=== PATIENT | male | born 1975 | race American Indian/Alaskan Native ===

== ENCOUNTER 2020-08-03 02:39 | Emergency (ER) | payer SELFPAY ==
[2020-08-03 02:51] VITALS: BP 121/73
[2020-08-03] MEDS ORDERED: oxyCODONE /ACETAMINOPHEN 5-325MG TAB PO ONE (04:03)
[2020-08-03] MEDS ORDERED: ONDANSETRON 4 MG ODT TAB PO ONE (04:03)
[2020-08-03] MEDS ORDERED: CLINDAMYCIN 150 MG CAP PO ONE (04:03)
[2020-08-03] MEDS ORDERED: SULFAMETHOXAZOLE/TRIMETHOPRIM 800/160MG DS TAB PO ONE (04:03)
[2020-08-03] MEDS ORDERED: IBUPROFEN 600 MG TAB PO ONE ×2 (04:03→04:09)
--- NOTE | 2020-08-03 04:08 | Emergency Department Report ---
ED General Adult HPI - General Chief complaint: Skin/Abscess/Foreign Body Stated complaint: POSSIBLE BUTTOCK CYST Source: patient Mode of arrival: Ambulatory Limitations: No Limitations - History of Present Illness Initial comments: Patient is a 45-year-old -[place] male with a history of morbid obesity who presents to the ED with complaint of acute onset persistent severe painful swollen mild erythematous maculopapular rash on left gluteal cleft for the last 2 days. Patient states that the pain was initially mild but in the last 24 hours the pain got worse especially with any movement or palpation of the area. Patient states that he has not been able to sleep in the last 6 hours because of worsening pain. Patient denies fever, chills, nausea, vomiting, dizziness, syncope, chest pain, shortness of breath, numbness and tingling or weakness of lower extremities bilaterally. MD Complaint: Left gluteal cleft painful swollen rash -: Sudden, days(s) (2) Location: buttocks (LEFT) Radiation: non-radiation Severity scale (0 -10): 8 Quality: aching, sharp Consistency: constant Improves with: none Worsens with: none Associated Symptoms: denies other symptoms, rash (Swollen, painful mildly erythematous maculopapular rash on left gluteal cleft). denies: confusion, chest pain, cough, diaphoresis, fever/chills, headaches, loss of appetite, malaise, nausea/vomiting, seizure, shortness of breath, syncope, weakness Treatments Prior to Arrival: none - Related Data Previous Rx's Medication Instructions Recorded Last Taken Type Metaxalone [Skelaxin] 800 mg PO TID PRN #15 tablet 10/30/19 Unknown Rx Acetaminophen/Codeine [Tylenol 1 tab PO Q6H PRN #12 tab 08/03/20 Unknown Rx /Codeine # 3 tab] Clindamycin [Clindamycin CAP] 300 mg PO Q8HR #60 capsule 08/03/20 Unknown Rx Ibuprofen [Motrin] 800 mg PO Q8HR PRN #30 tablet 08/03/20 Unknown Rx Sulfamethoxazole/Trimethoprim 1 each PO Q12H #20 tablet 08/03/20 Unknown Rx [Bactrim DS TAB] Allergies Allergy/AdvReac Type Severity Reaction Status Date / Time No Known Allergies Allergy Verified 10/29/19 23:52 ED Review of Systems ROS: Stated complaint: POSSIBLE BUTTOCK CYST Other details as noted in HPI Constitutional: denies: chills, fever Eyes: denies: eye pain, eye discharge, vision change ENT: denies: ear pain, throat pain Respiratory: denies: cough, shortness of breath, wheezing Cardiovascular: denies: chest pain, palpitations Endocrine: no symptoms reported Gastrointestinal: denies: abdominal pain, nausea, diarrhea Genitourinary: denies: urgency, dysuria Musculoskeletal: denies: back pain, joint swelling, arthralgia Skin: rash (Swollen mild erythematous painful maculopapular rash on left gluteal cleft), change in color. denies: lesions Neurological: denies: headache, weakness, paresthesias Psychiatric: denies: anxiety, depression Hematological/Lymphatic: denies: easy bleeding, easy bruising ED Past Medical Hx - Past Medical History Previous Medical History?: No - Surgical History Past Surgical History?: No - Social History Smoking Status: Current Every Day Smoker Substance Use Type: None - Medications Home Medications: Home Medications Medication Instructions Recorded Confirmed Last Taken Type Metaxalone [Skelaxin] 800 mg PO TID PRN #15 tablet 10/30/19 Unknown Rx Acetaminophen/Codeine [Tylenol 1 tab PO Q6H PRN #12 tab 08/03/20 Unknown Rx /Codeine # 3 tab] Clindamycin [Clindamycin CAP] 300 mg PO Q8HR #60 capsule 08/03/20 Unknown Rx Ibuprofen [Motrin] 800 mg PO Q8HR PRN #30 tablet 08/03/20 Unknown Rx Sulfamethoxazole/Trimethoprim 1 each PO Q12H #20 tablet 08/03/20 Unknown Rx [Bactrim DS TAB] ED Physical Exam - General Limitations: No Limitations General appearance: alert, in no apparent distress - Head Head exam: Present: atraumatic, normocephalic, normal inspection - Eye Eye exam: Present: normal appearance, PERRL, EOMI - ENT ENT exam: Present: normal exam, normal orophraynx, mucous membranes moist, TM's normal bilaterally, normal external ear exam - Neck Neck exam: Present: normal inspection, full ROM - Respiratory Respiratory exam: Present: normal lung sounds bilaterally. Absent: respiratory distress, wheezes, rales, rhonchi, chest wall tenderness, accessory muscle use, prolonged expiratory - Cardiovascular Cardiovascular Exam: Present: regular rate, normal rhythm, normal heart sounds. Absent: systolic murmur, diastolic murmur, rubs, gallop - GI/Abdominal GI/Abdominal exam: Present: soft, normal bowel sounds. Absent: tenderness, guarding, rebound, hyperactive bowel sounds, hypoactive bowel sounds, organomegaly - Extremities Exam Extremities exam: Present: normal inspection, full ROM, normal capillary refill - Back Exam Back exam: Present: normal inspection, full ROM. Absent: tenderness, CVA tenderness (R), CVA tenderness (L), muscle spasm, paraspinal tenderness, vertebral tenderness - Neurological Exam Neurological exam: Present: alert, oriented X3, CN II-XII intact, normal gait, reflexes normal - Psychiatric Psychiatric exam: Present: normal affect, normal mood - Skin Skin exam: Present: warm, dry, intact, normal color, rash (Swollen, severely tender, mildly erythematous nonfluctuant maculopapular rash on left gluteal cleft) ED Course Vital Signs 08/03/20 02:50 Temperature 98.9 F Pulse Rate 98 H Respiratory 18 Rate Blood Pressure 121/73 O2 Sat by Pulse 97 Oximetry ED Medical Decision Making - Medical Decision Making This is a 45-year-old -[place] male with a history of morbid obesity who presents to the ED with complaint of acute onset persistent severe painful swollen mild erythematous maculopapular rash on left gluteal cleft for the last 2 days. Patient states that the pain was initially mild but in the last 24 hours the pain got worse especially with any movement or palpation of the area. Patient states that he has not been able to sleep in the last 6 hours because of worsening pain. In the ED, patient is alert and oriented x3 and is not in distress. Patient was treated for pain in the ED, and also given initial oral antibiotics in the ED. Based on the history and physical exam findings, the patient's rash is nonfluctuant and may do well with oral antibiotics at home. Patient was therefore discharged home on pain medications and oral antibiotics and was advised to follow-up with his primary care physician in 7 to 10 days for reevaluation. Patient was advised return to the ED immediately if symptoms get worse. - Differential Diagnosis Cellulitis; cutaneous abscess; folliculitis Critical care attestation.: If time is entered above; I have spent that time in minutes in the direct care of this critically ill patient, excluding procedure time. ED Disposition Clinical Impression: Cutaneous abscess of buttock, Cellulitis of left buttock Disposition: - TO HOME OR SELFCARE Is pt being admited?: No Does the pt Need Aspirin: No Condition: Stable Instructions: Cellulitis, Adult, [id number], Skin Abscess, [id number] Additional Instructions: Take medication with food, drink plenty of fluids and follow-up with your primary care physician in 7 to 10 days for reevaluation. Return to the ED immediately if symptoms get worse. Prescriptions: Sulfamethoxazole/Trimethoprim [Bactrim DS TAB] 1 each PO Q12H #20 tablet Clindamycin [Clindamycin CAP] 300 mg PO Q8HR #60 capsule Ibuprofen [Motrin] 800 mg PO Q8HR PRN #30 tablet PRN Reason: Pain , Severe (7-10) Acetaminophen/Codeine [Tylenol /Codeine # 3 tab] 1 tab PO Q6H PRN #12 tab PRN Reason: Pain , Severe (7-10) Referrals: [facility] [Provider Group] - 7-10 days Time of Disposition: 04:08 Print Language: WELSH
[2020-08-03] MEDS ORDERED: oxyCODONE /ACETAMINOPHEN 5-325MG TAB ONE (04:09)
[2020-08-03] MEDS ORDERED: SULFAMETHOXAZOLE/TRIMETHOPRIM 800/160MG DS TAB ONE (04:09)
[2020-08-03] MEDS ORDERED: ONDANSETRON 4 MG ODT TAB ONE (04:09)
[2020-08-03] MEDS ORDERED: CLINDAMYCIN 300 MG CAP ONE (04:10)
== END 2020-08-03 04:30 | disposition home or self-care (01) ==
LOC: ED 02:39
DX: L02.31 Cutaneous abscess of buttock (principal); L03.317 Cellulitis of buttock; E66.01 Morbid (severe) obesity due to excess calories; F17.200 Nicotine dependence, unspecified, uncomplicated; Z68.41 Body mass index [BMI] 40.0-44.9, adult; Z79.899 Other long term (current) drug therapy
CPT/HCPCS: 99282; Q0162